=== PATIENT | male | born 1950 | race African-American/Black ===

== ENCOUNTER 2017-03-04 11:47 | Emergency (ER) | payer MEDICARE, OTHER ==
--- NOTE | 2017-03-04 14:03 | ER Document Report ---
ED GI/ - General Chief Complaint: Abdominal Pain Stated Complaint: ABDOMINAL PAIN Time Seen by Provider: 03/04/17 13:33 Notes: The patient is a 66-year-old male, past medical history CAD, stage III CKD CHF, presents with 4 days of epigastric pain and he also had an episode of hematemesis 4 days ago. He denies chest pain, shortness of breath, nausea, vomiting, black stool, urinary symptoms, back pain, headache, blood thinner or aspirin use or syncope. TRAVEL OUTSIDE OF THE [place] IN LAST 30 DAYS: No - Related Data Allergies/Adverse Reactions: No Known Allergies Allergy (Unverified 03/04/17 11:56) Home Medications: Current Home Medications Aspirin [Naun Chewable Aspirin] 1 tab PO DAILY 03/04/17 [History] Atorvastatin Calcium 80 mg PO QHS 03/04/17 [History] Carvedilol 25 mg PO BID 03/04/17 [History] Ergocalciferol (Vitamin D2) [Vitamin D] 1 tab PO DAILY 03/04/17 [History] Multivitamin [Multivitamins] 1 tab PO DAILY 03/04/17 [History] Sacubitril/Valsartan [Entresto 97 mg/103 mg Tablet] 1 tab PO DAILY 03/04/17 [ History] Tamsulosin HCl 0.4 mg PO QHS 03/04/17 [History] Past Medical History - General Information source: Patient - Social History Smoking Status: Current Every Day Smoker Chew tobacco use (# tins/day): No Frequency of alcohol use: Occasional Drug Abuse: None Family History: Reviewed & Not Pertinent Patient has suicidal ideation: No Patient has homicidal ideation: No - Past Medical History Cardiac Medical History: Reports: Hx Congestive Heart Failure, Hx Heart Attack - X3, Hx Hypercholesterolemia, Hx Hypertension Renal/ Medical History: Denies: Hx Peritoneal Dialysis Past Surgical History: Reports: Hx Cardiac Catheterization - mult. stents, Hx Cardiac Surgery - bypass in 2016 Review of Systems - Review of Systems Notes: REVIEW OF SYSTEMS: CONSTITUTIONAL: -fevers, -chills EENT: -eye pain, -difficulty swallowing, -nasal congestion CARDIOVASCULAR:-chest pain, -syncope. RESPIRATORY: -cough, -SOB GASTROINTESTINAL: +abdominal pain, +nausea, +vomiting, -diarrhea GENITOURINARY: -dysuria, -hematuria MUSCULOSKELETAL: -back pain, -neck pain SKIN: -rash or skin lesions. HEMATOLOGIC: -easy bruising or bleeding. LYMPHATIC: -swollen, enlarged glands. NEUROLOGICAL: -altered mental status or loss of consciousness, -headache, - neurologic symptoms PSYCHIATRIC: -anxiety, -depression. ALL OTHER SYSTEMS REVIEWED AND NEGATIVE. Physical Exam - Vital signs Vitals: Temp Pulse Resp BP Pulse Ox 98.3 F 66 20 108/71 98 03/04/17 11:58 03/04/17 11:58 03/04/17 11:58 03/04/17 11:58 03/04/17 11:58 - Notes Notes: PHYSICAL EXAMINATION: GENERAL: Well-appearing, well-nourished and in no acute distress. HEAD: Atraumatic, normocephalic. EYES: Pupils equal round and reactive to light, extraocular movements intact, sclera anicteric, conjunctiva are normal. ENT: nares patent, oropharynx clear without exudates. Moist mucous membranes. NECK: Normal range of motion, supple without lymphadenopathy LUNGS: Breath sounds clear to auscultation bilaterally and equal. No wheezes rales or rhonchi. HEART: Regular rate and rhythm without murmurs ABDOMEN: Soft, mild epigastric tenderness, normoactive bowel sounds. No guarding, no rebound. No masses appreciated. RECTAL: Brown stool. EXTREMITIES: Normal range of motion, no pitting or edema. No cyanosis. NEUROLOGICAL: Cranial nerves grossly intact. Normal speech, normal gait. Normal sensory and motor exams. PSYCH: Normal mood, normal affect. SKIN: Warm, Dry, normal turgor, no rashes or lesions noted. Course - Re-evaluation Re-evalutation: Patient appears very well. His hemoglobin is 14 and he is hemodynamically stable. His creatinine is consistent with his known stage III kidney disease. His guaiac is negative and stool is brown. Patient has no complaints and is safe for discharge with follow-up at GI as an outpatient. Will begin Prilosec for presumed gastritis. Given very strict return precautions and he understands. Told him not to take any blood thinners or aspirin until evaluation by GI. - Vital Signs Vital signs: Temp Pulse Resp BP Pulse Ox 98.3 F 66 20 108/71 98 03/04/17 11:58 03/04/17 11:58 03/04/17 11:58 03/04/17 11:58 03/04/17 11:58 - Laboratory Result Diagrams: 03/04/17 15:06 03/04/17 15:06 Laboratory results interpreted by me: 03/04/17 03/04/17 15:06 15:06 RDW 15.9 H Sodium 145.7 H Chloride 109 H BUN 23 H Creatinine 1.89 H Est GFR ( Amer) 44 L Est GFR (Non-Af Amer) 36 L Discharge - Discharge Clinical Impression: Epigastric abdominal pain Condition: Stable Disposition: HOME, SELF-CARE Additional Instructions: Gastritis You have an inflammation of the stomach called gastritis. This commonly causes upper abdominal pain, nausea, and vomiting. In severe cases, bleeding of the stomach lining can occur. Gastritis can be caused by bacteria or viruses , alcohol, or stomach-irritating drugs. Begin with sips of clear liquids. Take increasing amounts of fluid over the first 24 hours. Then start small amounts of bland foods (such as dry toast , applesauce, mashed potato). Gradually resume your usual diet. You should take antacids every two hours until the pain has subsided. Acid -suppressing drugs may be prescribed as well. Avoid aspirin, caffeine, tobacco , and alcohol. If the abdominal pain worsens, or there is evidence of major bleeding in the stomach (such as black, tarry stool, bloody or black vomit, or lightheadedness), you should return immediately. Call the doctor if you aren't improved in 24 to 36 hours. Prescriptions: Omeprazole Magnesium [Prilosec Otc] 20 mg PO Q12H #14 tablet. Referrals: MALIK MARIEE MD [Primary Care Provider] - Follow up as needed ML SANTILLAN MD [ACTIVE STAFF] - Follow up as needed
--- NOTE | 2017-03-04 14:11 | EKG REPORT ---
SEVERITY:- BORDERLINE ECG - SINUS RHYTHM BORDERLINE T ABNORMALITIES, INFERIOR LEADS LVH : Confirmed by: Bronwyn Gillis 04-Mar-2017 14:10:41
[2017-03-04 15:24] LABS: ABSOLUTE BASOPHILS # (AUTO) 0.1 10^3/uL (0.0-0.2); ABSOLUTE EOSINOPHILS # (AUTO) 0.2 10^3/uL (0.0-0.6); ABSOLUTE LYMPHOCYTES (AUTO) 1.8 10^3/uL (0.5-4.7); ABSOLUTE MONOCYTES (AUTO) 0.5 10^3/uL (0.1-1.4); ABSOLUTE NEUT (AUTO) 2.4 10^3/uL (1.7-8.2); BASOPHILS % (AUTO) 1.1 % (0-2); HEMATOCRIT 40.9 % (37.9-51.0); HEMOGLOBIN 14.1 g/dL (13.5-17.0); HGB HCT DIFFERENCE 1.4; LYMPHOCYTES % (AUTO) 36.4 % (13-45); MEAN CORPUSCULAR HEMOGLOBIN 28.1 pg (27.0-33.4); MEAN CORPUSCULAR HGB CONC 34.3 g/dL (32.0-36.0); MEAN CORPUSCULAR VOLUME 82 fl (80-97); MONOCYTES % (AUTO) 9.9 % (3-13); RED CELL DISTRIBUTION WIDTH 15.9 % (11.5-14.0); SEGMENTED NEUTROPHILS % (AUTO) 48.6 % (42-78); WHITE BLOOD COUNT 4.9 10^3/uL (4.0-10.5)
[2017-03-04 15:32] LABS: PROTHROMBIN TIME 13.6 SEC (11.4-15.4)
[2017-03-04 15:33] LABS: PARTIAL THROMBOPLASTIN TIME 31.1 SEC (23.5-35.8)
[2017-03-04 15:47] LABS: ALANINE AMINOTRANSFERASE 29 U/L (21-72); ALKALINE PHOSPHATASE 104 U/L (38-126); ANION GAP 9 (5-19); ASPARTATE AMINO TRANSFERASE 21 U/L (17-59); BILIRUBIN,DIRECT 0.4 mg/dL (0.0-0.4); BILIRUBIN,TOTAL 0.5 mg/dL (0.2-1.3); BLOOD UREA NITROGEN 23 mg/dL (7-20); CALCIUM 9.4 mg/dL (8.4-10.2); CARBON DIOXIDE 28 mmol/L (22-30); CHLORIDE 109 mmol/L (98-107); CREATINE KINASE 81 U/L (55-170); CREATININE RESULT 1.89 mg/dL (0.52-1.25); GLUCOSE 80 mg/dL (75-110); LIPASE 191.4 U/L (23-300); POTASSIUM 4.6 mmol/L (3.6-5.0); SODIUM 145.7 mmol/L (137-145); TOTAL PROTEIN 6.9 g/dL (6.3-8.2)
[2017-03-04 16:36] VITALS: BP 156/65
== END 2017-03-04 16:30 | disposition home or self-care (01) ==
LOC: ER 11:47
DX: R10.13 Epigastric pain (principal); I13.0 Hypertensive heart and chronic kidney disease with heart failure and stage 1 through stage 4 chronic kidney disease, or unspecified chronic kidney disease; N18.3 Chronic kidney disease, stage 3 (moderate); F17.200 Nicotine dependence, unspecified, uncomplicated; I50.9 Heart failure, unspecified; E78.00 Pure hypercholesterolemia, unspecified; I25.2 Old myocardial infarction
CPT/HCPCS: 36415; 80053; 82272; 82550; 83690; 84484; 85025; 85610; 85730; 93005; 93010; 99284

== ENCOUNTER 2019-04-27 09:55 | Day surgery (SDC) | payer MEDICARE, OTHER ==
[~2019-04-27 09:55] MED LIST: PROPOFOL INJ 200 MG/20 ML VIAL IV ONE
--- NOTE | 2019-04-27 11:35 | Operative Report ---
Operative Report DATE OF SURGERY: 04/27/19 Operative Report: The risks, benefits and alternatives of the procedure including the risk of bleeding, perforation requiring surgery have been explained to the patient in detail and informed consent has been obtained. The patient is placed in a left, lateral decubital position. Timeout was called. Propofol medication is administered. Rectal examination is done which did not reveal any masses, tears or fissures. An Olympus videoscope was introduced into the patient's rectum. Scope was then carefully advanced all the way to the cecum. The cecum was identified by the usual anatomical landmarks including the ileocecal valve as well as the appendiceal office. Photodocumentation is obtained. Scope was then sequentially pulled back via the various segments of the colon including the ascending colon, hepatic flexure, transverse colon, splenic flexure, descending colon and finally into the rectosigmoid portions of the colon. Retroflexion maneuvers performed. PREOPERATIVE DIAGNOSIS: Personal history of polyps POSTOPERATIVE DIAGNOSIS: About 8 mm polyp noted at the hepatic flexure is removed via snare polypectomy and retrieved. Smaller diminutive polyp removal via biopsy forceps OPERATION: Colonoscopy with snare polypectomy. Colonoscopy with biopsy SURGEON: BRI HERNÁNDEZ ANESTHESIA: LMAC TISSUE REMOVED OR ALTERED: As noted above. COMPLICATIONS: None. ESTIMATED BLOOD LOSS: None. INTRAOPERATIVE FINDINGS: As noted above. PROCEDURE: Patient tolerated the procedure well. No immediate postprocedure complications are noted. Patient is discharged in good condition. Discharge date 04/27/2019. Discharge diet: Regular. Discharge activity: Regular. 2 to 3-week follow-up to discuss findings. 3 to 5-year surveillance colonoscopy. Patient is instructed to call the office or proceed to the emergency room should there be any further problems or questions.
[2019-04-27 12:03] VITALS: BP 156/74
== END 2019-04-27 12:00 | disposition home or self-care (01) ==
LOC: END 09:55
PROVIDERS: ATTEND Internal Medicine Gastroenterology
DX: Z12.11 Encounter for screening for malignant neoplasm of colon (principal); Z86.010 Personal history of colon polyps; D12.6 Benign neoplasm of colon, unspecified; D12.5 Benign neoplasm of sigmoid colon; I25.2 Old myocardial infarction; F17.210 Nicotine dependence, cigarettes, uncomplicated; I50.9 Heart failure, unspecified; I25.119 Atherosclerotic heart disease of native coronary artery with unspecified angina pectoris
CPT/HCPCS: 45385; 88305 ×2; 00811; J2704; 811

== ENCOUNTER → 2019-09-30 | Outpatient (CLI) | payer MEDICARE, OTHER ==
[~2019-09-30] MED LIST changes: +ALBUTEROL SULFATE 0.083% NEB 2.5 MG/3 ML AMPUL NEB ONE; -PROPOFOL INJ 200 MG/20 ML VIAL IV ONE
== END ==
LOC: RT 12:53
PROVIDERS: ATTEND Physician Assistant
DX: R06.00 Dyspnea, unspecified (principal); I25.10 Atherosclerotic heart disease of native coronary artery without angina pectoris; I25.2 Old myocardial infarction
CPT/HCPCS: 94729; 94727; 94060; A9270

== ENCOUNTER 2020-02-11 08:01 | Day surgery (SDC) | payer MEDICARE, OTHER ==
[2020-02-11] MEDS ORDERED: PROPOFOL INJ 200 MG/20 ML VIAL IV ONE (09:54)
--- NOTE | 2020-02-11 10:54 | Operative Report ---
Operative Report DATE OF SURGERY: 02/11/20 Operative Report: The risks benefits and alternatives of the procedure explained to the patient in detail and informed consent is obtained.A GIF Olympus video scope was inserted into the patient's mouth and hypopharynx, the esophagus is identified intubated and insufflated ,the scope was then advanced through the esophagus stomach and duodenum, retroflexion maneuver is done, the esophagus stomach and first and second portions of the duodenum examined PREOPERATIVE DIAGNOSIS: Melena POSTOPERATIVE DIAGNOSIS: Polyp noted in stomach status post snare polypectomy with removal OPERATION: EGD with snare polypectomy SURGEON: BRI HERNÁNDEZ ANESTHESIA: LMAC TISSUE REMOVED OR ALTERED: As noted above. COMPLICATIONS: None. ESTIMATED BLOOD LOSS: None. INTRAOPERATIVE FINDINGS: As noted above. PROCEDURE: Patient tolerated the procedure well. No immediate postprocedure complications are noted. Patient is discharged in good condition. Discharge date 02/11/2020. Discharge diet: Regular. Discharge activity: Regular. 2 to 3-week follow-up to discuss findings. Patient is instructed to call the office or proceed to the emergency room should there be any further problems or questions. Wait on the pathology.
[2020-02-11 12:26] VITALS: BP 126/60
== END 2020-02-11 10:48 | disposition home or self-care (01) ==
LOC: END 08:01
PROVIDERS: ATTEND Internal Medicine Gastroenterology
DX: K31.7 Polyp of stomach and duodenum (principal); K92.1 Melena; I10 Essential (primary) hypertension; Z03.818 Encounter for observation for suspected exposure to other biological agents ruled out; F17.200 Nicotine dependence, unspecified, uncomplicated; Z79.82 Long term (current) use of aspirin; Z79.899 Other long term (current) drug therapy; Z95.1 Presence of aortocoronary bypass graft; Z79.02 Long term (current) use of antithrombotics/antiplatelets
CPT/HCPCS: 43251; 00731; U0003; J2704; C9803; 731; 87635